=== PATIENT | female | born 1965 | race Caucasian/White ===

== ENCOUNTER → 2024-09-05 09:36 | Outpatient (REF) | payer OTHER, SELFPAY | LOC: HWWDC 09:36 | PROVIDERS: ATTENDING PHYSICIAN Internal Medicine | DX: Z12.31 Encounter for screening mammogram for malignant neoplasm of breast (principal) | CPT/HCPCS: 77063; 77067 ==

== ENCOUNTER 2024-12-17 06:18 | Day surgery (SDC) | payer OTHER, SELFPAY ==
[2024-12-12 09:26] LABS: % Basophils 1.1 % (0-2); % Immature Granulocytes 0.4 % (0-0.5); % Lymphocytes 33.9 % (20.5-51.1); % Monocytes 5.9 % (1.7-9.3); % Neutrophils 56.7 % (42.2-75.2); Absolute Basophils 0.1 10^3/uL (0-0.2); Absolute Eosinophils 0.1 10^3/uL (0-0.7); Absolute Lymphocytes 1.9 10^3/uL (1.2-3.4); Absolute Monocytes 0.3 10^3/uL (0.1-0.6); Absolute Neutrophils 3.2 10^3/uL (1.4-6.5); Hematocrit 37.6 % (37.0-47.0); Hemoglobin 12.7 g/dL (12.0-16.0); Mean Corp Hgb Conc. 33.8 g/dL (33.0-37.0); Mean Corpuscular Hgb 29.7 pg (27.0-31.0); Mean Corpuscular Volume 87.9 fL (81.0-99.0); Mean Platelet Volume 10.9 fL (7.4-10.4); Nucleated Red Blood Cells % 0 %; Platelet Count 321 10^3/uL (130-400); Red Blood Cell Count 4.28 10^6/uL (4.20-5.40); Red Cell Dist. Width 13.9 % (11.5-14.5); White Blood Cell Count 5.6 10^3/uL (4.8-10.8)
[2024-12-12 11:49] LABS: Blood Urea Nitrogen 18 mg/dl (7-17); Carbon Dioxide 28 mmol/L (22-30); Chloride 104 mmol/L (98-107); Glucose 89 mg/dl (70-99); Potassium 4.7 mmol/L (3.5-5.1); Sodium 141 mmol/L (135-145); eGFR > 60.00
--- NOTE | 2024-12-15 14:50 | PTCARENOTE ---
Abnormal EKG on 12/12/24. Dr. Galaviz aware. No intervention needed.
[2024-12-17] VITALS (13 sets, daily range): BP systolic 87–114; BP diastolic 53–79; BMI 20.7
[2024-12-17] MEDS: NORMOSOL-R/PLASMALYTE-A 1000 IV (11:27)
[2024-12-17] MEDS: TYLENOL 1000 MG PO (11:28)
[2024-12-17] MEDS: EMEND 40 MG PO (11:49)
--- NOTE | 2024-12-17 21:46 | W.IMMPOSTOP ---
Surgical Immed Post Op Note
-
Primary Surgeon: Christopher Day MD
Assisting Surgeon:
Pre-op Diagnosis: right knee medial meniscus tear
Post-op Diagnosis: right knee medial and lateral meniscal tears
Procedure Performed: arthroscopic right knee medial and lateral partial meniscectomies
Anesthesia Type: general
Specimen / Cultures: none
Estimated Blood Loss: 2mL
Complications: none apparent
Operative Findings: displaced bucket handle medial meniscal tear, horizontal posterior horn tear lateral meniscus, grade 3 chondrosis medial femoral condyle
Tourniquet time: 37 minutes at 250mm Hg
Operative dictation #: [id number]
== END 2024-12-17 16:32 | disposition home or self-care (01) ==
LOC: SDS 06:18
PROVIDERS: ATTENDING PHYSICIAN Student in an Organized Health Care Education/Training Program; FAMILY PHYSICIAN Internal Medicine
DX: S83.241A Other tear of medial meniscus, current injury, right knee, initial encounter (principal); S83.281A Other tear of lateral meniscus, current injury, right knee, initial encounter; X50.1XXA Overexertion from prolonged static or awkward postures, initial encounter
CPT/HCPCS: 29880; 36415; 80048; 85025; 93005

== ENCOUNTER → 2025-05-13 09:26 | Outpatient (REF) | payer OTHER, SELFPAY | LOC: RAD 09:26 | PROVIDERS: ATTENDING PHYSICIAN Physical Medicine & Rehabilitation Sports Medicine; FAMILY PHYSICIAN Internal Medicine | DX: M25.561 Pain in right knee (principal); M62.561 Muscle wasting and atrophy, not elsewhere classified, right lower leg; G57.31 Lesion of lateral popliteal nerve, right lower limb | CPT/HCPCS: 76882 ==